=== PATIENT | male | born 1990 | race Caucasian/White ===

== ENCOUNTER 2017-10-16 20:51 | Emergency (ER) | payer OTHER ==
[2017-10-16] MEDS ORDERED: MAG HYDROX/AL HYDROX/SIMETH ES 30 ML SUSP UDCUP ONE (21:30)
[2017-10-16] MEDS ORDERED: DiphenhydrAMINE HCL 25 MG/10 ML ELIXIR UDCUP ONE (21:30)
[2017-10-16] MEDS ORDERED: DEXAMETHASONE SOD PHOSPHATE 10MG/ML 1ML VIAL ONE (21:30)
[2017-10-16] MEDS ORDERED: LIDOCAINE HCL 2% VISCOUS 15 ML UDCUP ONE (21:30)
[2017-10-16] MEDS ORDERED: LIDOCAINE HCL-MPF 1% 2ML VIAL ONE (21:37)
[2017-10-16] MEDS ORDERED: CEFTRIAXONE SODIUM 1 GM ONE (21:38)
== END 2017-10-16 22:15 | disposition home or self-care (01) ==
LOC: EDH 20:51
DX: J02.9 Acute pharyngitis, unspecified (principal); Z72.0 Tobacco use
CPT/HCPCS: 96372 ×2; 99284; J0696; J1100; J3490